=== PATIENT | male | born 1985 | race Caucasian/White ===

== ENCOUNTER 2019-12-28 14:26 | Emergency (ER) | payer OTHER ==
[~2019-12-28] VITALS: Ht 188 cm; Wt 83.9 kg
[~2019-12-28 14:26] MED LIST: ALBU90OI INH; AMOX500 PO; AZIT500 PO; Desyrel50 MG PO; NAPR550 PO; OXYACE5T PO; RXNAPNA550 PO; Zoloft25 MG PO; Zoloft50 MG PO
[2019-12-28] MEDS ORDERED: ACYC400 PO (16:46)
== END 2019-12-28 16:54 | disposition home or self-care (01) ==
LOC: ER 14:26
DX: S02.40CA Maxillary fracture, right side, initial encounter for closed fracture (principal); A60.01 Herpesviral infection of penis; F32.9 Major depressive disorder, single episode, unspecified; F17.210 Nicotine dependence, cigarettes, uncomplicated; Z79.899 Other long term (current) drug therapy; V27.4XXA Motorcycle driver injured in collision with fixed or stationary object in traffic accident, initial encounter
CPT/HCPCS: 70450; 70486; 73130; 99284-25

== ENCOUNTER 2020-11-05 18:13 | Emergency (ER) | payer OTHER ==
[~2020-11-05] VITALS: Ht 188 cm; Wt 81.7 kg
[~2020-11-05 18:13] MED LIST changes: +ACYC400 PO
== END 2020-11-05 21:16 | disposition home or self-care (01) ==
LOC: ER 18:13
DX: M65.9 Synovitis and tenosynovitis, unspecified (principal); F17.210 Nicotine dependence, cigarettes, uncomplicated; X50.1XXA Overexertion from prolonged static or awkward postures, initial encounter; Y93.89 Activity, other specified
CPT/HCPCS: 29125; 73100; 99283-25

== ENCOUNTER 2021-04-09 16:21 | Observation (INO) | payer OTHER ==
[~2021-04-09] VITALS: Ht 188 cm; Wt 68.0 kg
[2021-04-09 17:08] LABS: BASOPHILS ABSOLUTE AUTO 0.02 K/mm3 (0.00-0.23); BASOPHILS PERCENT AUTO 0 % (0-2); EOSINOPHILS ABSOLUTE AUTO 0.22 K/mm3 (0.00-0.68); EOSINOPHILS PERCENT AUTO 2 % (0-6); Hematocrit 42.2 % (37.0-53.0); Hemoglobin 13.9 g/dL (13.5-17.5); IMMATURE GRAN ABSOLUTE AUTO 0.02 K/mm3 (0.00-0.10); IMMATURE GRAN PERCENT AUTO 0 % (0-1); LYMPHOCYTES ABSOLUTE AUTO 2.53 K/mm3 (0.84-5.20); LYMPHOCYTES PERCENT AUTO 26 % (21-46); MONOCYTES ABSOLUTE AUTO 0.52 K/mm3 (0.16-1.47); MONOCYTES PERCENT AUTO 5 % (4-13); Mean Corpuscular HGB Conc 32.9 g/dL (31.5-36.5); Mean Corpuscular Volume 91 fL (80-100); Mean Platelet Volume 10.4 fL (9.1-12.4); NEUTROPHILS ABSOLUTE AUTO 6.56 K/mm3 (1.96-9.15); NEUTROPHILS PERCENT AUTO 67 % (41-73); Platelet Count 266 K/mm3 (150-400); RDW Coefficient Variation 12.7 % (11.7-14.2); RDW Standard Deviation 42.5 fL (35.1-46.3); Red Blood Cell Count 4.63 M/mm3 (4.30-5.90); White Blood Cell Count 9.87 K/mm3 (4.00-11.30)
[2021-04-09 17:16] LABS: Source, Urine Clean Catch
[2021-04-09 17:34] LABS: Appearance, Urine Clear (Clear); Bilirubin, Urine Neg (Neg); Blood, Urine 1+ (Neg); Color, Urine Yellow (P-Yellow); Glucose Qualitative, Urine Neg (Neg); Ketones, Urine Neg (Neg); Leukocyte Esterase, Urine Neg (Neg); Nitrite, Urine Neg (Neg); Protein, Urine Neg (Neg); Urobilinogen, Urine NORM (Normal)
[2021-04-09 17:35] LABS: U Cannabinoids Screen DETECTED
[2021-04-09 17:36] LABS: U Amphetamine Screen Not Detected; U Barbituate Screen Not Detected; U Benzodiazapine Screen Not Detected; U Buprenorphine Screen Not Detected; U Cocaine Screen Not Detected; U Methadone Screen Not Detected; U Methamphetamine Screen Not Detected; U Opiates Screen Not Detected; U Oxycodone Screen Not Detected; U Phencyclidine Screen Not Detected; U Propoxyphene Screen Not Detected
[2021-04-09 17:38] LABS: Alanine Aminotransfer (ALT/SGP 23 U/L (12-78); Albumin, Blood 3.6 g/dL (3.4-5.0); Albumin/Globulin Ratio 0.9 (0.8-1.8); Alk Phos 58 U/L (50-136); Anion Gap 9 mmol/L (6-16); Aspartate Aminotrans (AST/SGOT 19 U/L (12-37); Bilirubin, Total 0.7 mg/dL (0.1-1.0); Blood Urea Nitrogen 14 mg/dL (8-24); Bun/Creatinine Ratio 16.3 (12.0-20.0); CO2, Blood 24 mmol/L (21-32); Calcium, Blood 8.5 mg/dL (8.5-10.1); Chloride, Blood 109 mmol/L (98-108); Creatinine, Blood 0.86 mg/dL (0.60-1.20); Ethanol (Alcohol), Blood, Med 35 mg/dL; Globulin, Blood 3.8 g/dL (2.2-4.0); Glomerular Filtration Rate >60 (60-); Glucose, Blood 94 mg/dL (70-99); Potassium, Blood 3.9 mmol/L (3.5-5.5); Salicylate 2.2 mg/dL (2.8-20.0); Sodium, Blood 142 mmol/L (136-145); Total Protein, Blood 7.4 g/dL (6.4-8.2)
[2021-04-09 17:47] LABS: White Blood Cells, Urine Rare /hpf (0-5)
[2021-04-09 17:48] LABS: Bacteria Rare /hpf; Red Blood Cells, Urine 0-2 /hpf (0-2); Squamous Epithelial Cells Rare /hpf (Few)
[2021-04-09 19:10] LABS: SARS-Cov-2 (COVID-19) PCR, MMC NEGATIVE (NEGATIVE)
== END 2021-04-10 14:03 | disposition home or self-care (01) ==
LOC: ER 16:21 → EOR 16:22
PROVIDERS: Physician Assistant; ADMIT Student in an Organized Health Care Education/Training Program
DX: F33.9 Major depressive disorder, recurrent, unspecified (principal); F19.10 Other psychoactive substance abuse, uncomplicated; F17.210 Nicotine dependence, cigarettes, uncomplicated; Z20.822 Contact with and (suspected) exposure to COVID-19; Z59.0 Homelessness
CPT/HCPCS: 80053; 81001; 85025; 99285; A9270; G0378; G0480; Q3014; U0004

== ENCOUNTER 2021-12-10 16:16 | Emergency (ER) | payer OTHER ==
[~2021-12-10] VITALS: Ht 188 cm; Wt 81.7 kg
[~2021-12-10 16:16] MED LIST changes: +Keflex500 MG PO
[2021-12-10 17:17] LABS: BASOPHILS ABSOLUTE AUTO 0.02 K/mm3 (0.00-0.23); BASOPHILS PERCENT AUTO 0 % (0-2); EOSINOPHILS ABSOLUTE AUTO 0.05 K/mm3 (0.00-0.68); EOSINOPHILS PERCENT AUTO 1 % (0-6); Hematocrit 41.7 % (37.0-53.0); Hemoglobin 14.2 g/dL (13.5-17.5); IMMATURE GRAN ABSOLUTE AUTO 0.02 K/mm3 (0.00-0.10); IMMATURE GRAN PERCENT AUTO 0 % (0-1); LYMPHOCYTES ABSOLUTE AUTO 1.85 K/mm3 (0.84-5.20); LYMPHOCYTES PERCENT AUTO 24 % (21-46); MONOCYTES ABSOLUTE AUTO 1.11 K/mm3 (0.16-1.47); MONOCYTES PERCENT AUTO 15 % (4-13); Mean Corpuscular HGB 31.4 pg (26.0-34.0); Mean Corpuscular HGB Conc 34.1 g/dL (31.5-36.5); Mean Corpuscular Volume 92 fL (80-100); Mean Platelet Volume 10.2 fL (9.1-12.4); NEUTROPHILS ABSOLUTE AUTO 4.53 K/mm3 (1.96-9.15); NEUTROPHILS PERCENT AUTO 60 % (41-73); Platelet Count 234 K/mm3 (150-400); RDW Coefficient Variation 13.3 % (11.7-14.2); RDW Standard Deviation 45.9 fL (35.1-46.3); Red Blood Cell Count 4.52 M/mm3 (4.30-5.90); White Blood Cell Count 7.58 K/mm3 (4.00-11.30)
[2021-12-10 17:36] LABS: Alanine Aminotransfer (ALT/SGP 25 U/L (12-78); Albumin, Blood 3.5 g/dL (3.4-5.0); Albumin/Globulin Ratio 0.9 (0.8-1.8); Alk Phos 69 U/L (50-136); Anion Gap 4 mmol/L (6-16); Aspartate Aminotrans (AST/SGOT 21 U/L (12-37); Bilirubin, Total 0.4 mg/dL (0.1-1.0); Blood Urea Nitrogen 15 mg/dL (8-24); Bun/Creatinine Ratio 16.9 (12.0-20.0); CO2, Blood 28 mmol/L (21-32); Calcium, Blood 8.5 mg/dL (8.5-10.1); Chloride, Blood 107 mmol/L (98-108); Creatinine, Blood 0.89 mg/dL (0.60-1.20); Glomerular Filtration Rate >60 (60-); Glucose, Blood 84 mg/dL (70-99); Potassium, Blood 3.9 mmol/L (3.5-5.5); Sodium, Blood 139 mmol/L (136-145); Total Protein, Blood 7.5 g/dL (6.4-8.2)
== END 2021-12-10 19:41 | disposition home or self-care (01) ==
LOC: ER 16:16
PROVIDERS: Physician Assistant
DX: R59.0 Localized enlarged lymph nodes (principal); F32.A Depression, unspecified; F17.210 Nicotine dependence, cigarettes, uncomplicated
CPT/HCPCS: 36415; 74177; 80053; 85025; 99284-25; Q9967

== ENCOUNTER 2022-07-29 23:11 | Emergency (ER) | payer OTHER ==
[~2022-07-29] VITALS: Ht 188 cm; Wt 70.3 kg
== END 2022-07-30 01:44 | disposition home or self-care (01) ==
LOC: ER 23:11
DX: S01.81XA Laceration without foreign body of other part of head, initial encounter (principal); F17.210 Nicotine dependence, cigarettes, uncomplicated; W19.XXXA Unspecified fall, initial encounter
CPT/HCPCS: 90714

== ENCOUNTER 2022-08-20 16:21 | Emergency (ER) | payer OTHER ==
[~2022-08-20] VITALS: Ht 188 cm; Wt 79.4 kg
== END 2022-08-20 16:52 | disposition home or self-care (01) ==
LOC: ER 16:21
DX: Z48.02 Encounter for removal of sutures (principal); F17.210 Nicotine dependence, cigarettes, uncomplicated; Z79.899 Other long term (current) drug therapy
CPT/HCPCS: 99281

== ENCOUNTER 2023-05-21 02:53 | Emergency (ER) | payer OTHER ==
[~2023-05-21] VITALS: Ht 188 cm; Wt 88.5 kg
[2023-05-21 03:22] LABS: BASOPHILS ABSOLUTE AUTO 0.04 K/mm3 (0.00-0.23); BASOPHILS PERCENT AUTO 0 % (0-2); EOSINOPHILS ABSOLUTE AUTO 0.21 K/mm3 (0.00-0.68); EOSINOPHILS PERCENT AUTO 2 % (0-6); Hematocrit 39.5 % (37.0-53.0); Hemoglobin 13.3 g/dL (13.5-17.5); IMMATURE GRAN ABSOLUTE AUTO 0.04 K/mm3 (0.00-0.10); IMMATURE GRAN PERCENT AUTO 0 % (0-1); LYMPHOCYTES ABSOLUTE AUTO 2.22 K/mm3 (0.84-5.20); LYMPHOCYTES PERCENT AUTO 17 % (21-46); MONOCYTES PERCENT AUTO 7 % (4-13); Mean Corpuscular HGB 30.2 pg (26.0-34.0); Mean Corpuscular HGB Conc 33.7 g/dL (31.5-36.5); Mean Corpuscular Volume 90 fL (80-100); Mean Platelet Volume 10.3 fL (9.1-12.4); NEUTROPHILS ABSOLUTE AUTO 10.01 K/mm3 (1.96-9.15); NEUTROPHILS PERCENT AUTO 75 % (41-73); Platelet Count 236 K/mm3 (150-400); RDW Coefficient Variation 12.4 % (11.7-14.2); Red Blood Cell Count 4.41 M/mm3 (4.30-5.90); White Blood Cell Count 13.42 K/mm3 (4.00-11.30)
[2023-05-21 03:34] LABS: Albumin, Blood 3.2 g/dL (3.4-5.0); Albumin/Globulin Ratio 0.9 (0.8-1.8); Bilirubin, Total 0.7 mg/dL (0.1-1.0); Bun/Creatinine Ratio 11.7 (12.0-20.0); Calcium, Blood 8.7 mg/dL (8.5-10.1); Creatinine, Blood 0.94 mg/dL (0.60-1.20); Globulin, Blood 3.5 g/dL (2.2-4.0); Potassium, Blood 4.4 mmol/L (3.5-5.5); Total Protein, Blood 6.7 g/dL (6.4-8.2)
[2023-05-21 04:15] LABS: Influenza A, PCR NEGATIVE (NEGATIVE); Influenza B, PCR NEGATIVE (NEGATIVE); Resp Syncytial Virus, PCR NEGATIVE (NEGATIVE); SARS-Cov-2 (COVID-19) PCR, MMC NEGATIVE (NEGATIVE)
[2023-05-21] MEDS ORDERED: Amoxicillin875 MG PO (04:36)
[2023-05-21 04:40] VITALS: BP 119/86
== END 2023-05-21 04:41 | disposition home or self-care (01) ==
LOC: ER 02:53
PROVIDERS: Emergency Medicine
DX: J18.9 Pneumonia, unspecified organism (principal); F17.210 Nicotine dependence, cigarettes, uncomplicated; Z20.822 Contact with and (suspected) exposure to COVID-19
CPT/HCPCS: 0241U; 71045; 80053; 84484; 85025; 93005; 93010; 99284-25; A9270

== ENCOUNTER 2023-06-20 10:02 | Emergency (ER) | payer OTHER ==
[~2023-06-20] VITALS: Ht 188 cm; Wt 77.1 kg
[~2023-06-20 10:02] MED LIST changes: +Amoxicillin875 MG PO
[2023-06-20 10:25] VITALS: BP 168/71
[2023-06-20] MEDS ORDERED: ALBU90OI INH (11:33)
[2023-06-20] MEDS ORDERED: METPRE4DP PO (11:33)
== END 2023-06-20 11:39 | disposition home or self-care (01) ==
LOC: ER 10:02
DX: J40 Bronchitis, not specified as acute or chronic (principal); F17.210 Nicotine dependence, cigarettes, uncomplicated; Z11.52 Encounter for screening for COVID-19; Z79.52 Long term (current) use of systemic steroids
CPT/HCPCS: 71046; 99285-25

== ENCOUNTER 2023-07-05 14:00 | Emergency (ER) | payer OTHER ==
[~2023-07-05] VITALS: Ht 188 cm; Wt 74.8 kg
[~2023-07-05 14:00] MED LIST changes: +METPRE4DP PO
[2023-07-05 14:44] LABS: BASOPHILS ABSOLUTE AUTO 0.02 K/mm3 (0.00-0.23); BASOPHILS PERCENT AUTO 0 % (0-2); EOSINOPHILS ABSOLUTE AUTO 0.03 K/mm3 (0.00-0.68); EOSINOPHILS PERCENT AUTO 0 % (0-6); Hematocrit 41.2 % (37.0-53.0); Hemoglobin 13.7 g/dL (13.5-17.5); IMMATURE GRAN ABSOLUTE AUTO 0.04 K/mm3 (0.00-0.10); IMMATURE GRAN PERCENT AUTO 0 % (0-1); LYMPHOCYTES ABSOLUTE AUTO 1.66 K/mm3 (0.84-5.20); LYMPHOCYTES PERCENT AUTO 13 % (21-46); MONOCYTES ABSOLUTE AUTO 0.89 K/mm3 (0.16-1.47); MONOCYTES PERCENT AUTO 7 % (4-13); Mean Corpuscular HGB 29.9 pg (26.0-34.0); Mean Corpuscular HGB Conc 33.3 g/dL (31.5-36.5); Mean Corpuscular Volume 90 fL (80-100); Mean Platelet Volume 10.4 fL (9.1-12.4); NEUTROPHILS ABSOLUTE AUTO 10.43 K/mm3 (1.96-9.15); NEUTROPHILS PERCENT AUTO 80 % (41-73); Platelet Count 262 K/mm3 (150-400); RDW Coefficient Variation 13.9 % (11.7-14.2); RDW Standard Deviation 45.4 fL (35.1-46.3); Red Blood Cell Count 4.58 M/mm3 (4.30-5.90); White Blood Cell Count 13.07 K/mm3 (4.00-11.30)
[2023-07-05 15:11] LABS: Albumin, Blood 3.2 g/dL (3.4-5.0); Bilirubin, Total 1.4 mg/dL (0.1-1.0); Bun/Creatinine Ratio 17.9 (12.0-20.0); Calcium, Blood 8.4 mg/dL (8.5-10.1); Creatinine, Blood 0.95 mg/dL (0.60-1.20); Globulin, Blood 3.2 g/dL (2.2-4.0); Potassium, Blood 4.3 mmol/L (3.5-5.5); Total Protein, Blood 6.4 g/dL (6.4-8.2)
[2023-07-05 19:41] LABS: Influenza A, PCR NEGATIVE (NEGATIVE); Influenza B, PCR NEGATIVE (NEGATIVE); Resp Syncytial Virus, PCR NEGATIVE (NEGATIVE); SARS-Cov-2 (COVID-19) PCR, MMC NEGATIVE (NEGATIVE)
[2023-07-05] MEDS ORDERED: POTA10T PO (20:31)
[2023-07-05] MEDS ORDERED: FURO20 PO (20:31)
[2023-07-05 20:35] VITALS: BP 149/102
== END 2023-07-05 20:39 | disposition home or self-care (01) ==
LOC: ER 14:00
PROVIDERS: Physician Assistant; Student in an Organized Health Care Education/Training Program
DX: I50.9 Heart failure, unspecified (principal); R05.9 Cough, unspecified; F17.210 Nicotine dependence, cigarettes, uncomplicated; Z79.899 Other long term (current) drug therapy; Z20.822 Contact with and (suspected) exposure to COVID-19
CPT/HCPCS: 0241U; 71046; 80053; 83880; 84484; 85025; 93005; 93010; 96374; 99285-25; A9270; J1940

== ENCOUNTER 2023-07-29 04:42 | Inpatient (IN) | payer OTHER ==
[2023-07-29] VITALS (41 sets, daily range): BP systolic 83–173; BP diastolic 35–81
[~2023-07-29] VITALS: Ht 188 cm; Wt 72.6 kg
[~2023-07-29 04:42] MED LIST changes: +FURO20 PO; +POTA10T PO
[2023-07-29 05:06] LABS: BASOPHILS ABSOLUTE AUTO 0.06 K/mm3 (0.00-0.23); BASOPHILS PERCENT AUTO 0 % (0-2); EOSINOPHILS ABSOLUTE AUTO 0.04 K/mm3 (0.00-0.68); EOSINOPHILS PERCENT AUTO 0 % (0-6); Hematocrit 39.3 % (37.0-53.0); Hemoglobin 13.4 g/dL (13.5-17.5); IMMATURE GRAN ABSOLUTE AUTO 0.14 K/mm3 (0.00-0.10); IMMATURE GRAN PERCENT AUTO 1 % (0-1); LYMPHOCYTES ABSOLUTE AUTO 0.99 K/mm3 (0.84-5.20); LYMPHOCYTES PERCENT AUTO 4 % (21-46); MONOCYTES ABSOLUTE AUTO 1.49 K/mm3 (0.16-1.47); MONOCYTES PERCENT AUTO 6 % (4-13); Mean Corpuscular HGB 29.5 pg (26.0-34.0); Mean Corpuscular HGB Conc 34.1 g/dL (31.5-36.5); Mean Corpuscular Volume 87 fL (80-100); Mean Platelet Volume 10.6 fL (9.1-12.4); NEUTROPHILS ABSOLUTE AUTO 20.39 K/mm3 (1.96-9.15); NEUTROPHILS PERCENT AUTO 88 % (41-73); Platelet Count 222 K/mm3 (150-400); RDW Coefficient Variation 13.4 % (11.7-14.2); RDW Standard Deviation 41.8 fL (35.1-46.3); Red Blood Cell Count 4.54 M/mm3 (4.30-5.90); White Blood Cell Count 23.11 K/mm3 (4.00-11.30)
[2023-07-29 05:26] LABS: Bilirubin, Total 2.3 mg/dL (0.1-1.0); Bun/Creatinine Ratio 13.5 (12.0-20.0); Calcium, Blood 8.3 mg/dL (8.5-10.1); Creatinine, Blood 1.11 mg/dL (0.60-1.20); Globulin, Blood 3.1 g/dL (2.2-4.0); Potassium, Blood 4.2 mmol/L (3.5-5.5); Total Protein, Blood 6.1 g/dL (6.4-8.2)
[2023-07-29 08:35] LABS: Influenza A, PCR NEGATIVE (NEGATIVE); Influenza B, PCR NEGATIVE (NEGATIVE); Resp Syncytial Virus, PCR NEGATIVE (NEGATIVE); SARS-Cov-2 (COVID-19) PCR, MMC NEGATIVE (NEGATIVE)
--- NOTE | 2023-07-29 15:20 | NUR ---
ARRIVAL TO ICU PT ARRIVED TO ICU AT 14:35. HE IS ALERT AND ORIENTED. HE DENIES SOB BUT APPEARS TO HAVE INCREASED WORK OF BREATHING. HE IS ON RA WITH SPO2 >95%. SINUS TACH ON MONITOR WITH RATE IN 100S-110S. SBP 160S-170S. PT DESCRIBES PERSISTENT CHEST PAIN THAT IS CONSTANT PRESSURE THAT RADIATES TO THE R SHOULDER/ARM. DR HORTA AT BEDSIDE DURING ARRIVAL. NITROPRUSSIDE GTT STARTED AT 0.25MCG/KG/MIN. URINE SAMPLE SENT TO LAB. BED IN LOW POSITION, CALL LIGHT WITHIN REACH.
--- NOTE | 2023-07-29 16:15 | NUR ---
NITROPRUSSIDE VERIFIED WITH DR HORTA TO INFUSE NITROPRUSSIDE PERIPHERALLY.
[2023-07-29 16:16] LABS: U Amphetamine Screen Not Detected; U Barbituate Screen Not Detected; U Benzodiazapine Screen Not Detected; U Buprenorphine Screen Not Detected; U Cannabinoids Screen Not Detected; U Cocaine Screen Not Detected; U Methadone Screen Not Detected; U Methamphetamine Screen Not Detected; U Opiates Screen Not Detected; U Oxycodone Screen Not Detected; U Phencyclidine Screen Not Detected
--- NOTE | 2023-07-29 18:10 | NUR ---
SHIFT SUMMARY PT RECEIVING NITROPRUSSIDE 1MCG/KG/MIN. HE REMAINS ALERT AND ORIENTED, PARTICIPATES IN CONVERSATION AND CARE. HE IS ON RA WITH SPO2 >90%. HE DENIES SOB, RR 18-22. SINUS TACH ON MONITOR WITH RATE IN 100S. HE CONTINUES TO HAVE MILD CHEST PAIN THAT IS CONSTANT AND RADIATES TO HIS R SHOULDER/ARM. NPO SINCE ARRIVAL IN ANTICIPATION FOR BONNIE THIS EVENING. HE HAS VOIDED TWICE IN THE URINAL INDEPENDENTLY. BED IN LOW POSITION AND CALL LIGHT WITHIN REACH. AWAITING DR HORTA AND ANESTHESIA FOR BONNIE AT THIS TIME.
--- NOTE | 2023-07-29 21:29 | NUR ---
ASSUMED CARE ASSUMED CARE AT 190. PT A/O X 4. CALM AND COOPERATIVE WITH CARE. VSS. ON RA. NITROPRUSSIDE GTT INFUSING. SEE FLOWSHEET FOR TITRATIONS. DR HORTA, ANESTHESIA, RT, AND TISSUE COORDINATOR AT BEDSIDE FOR BONNIE. PT TOLERATED WELL. PROCEDURE ENDED AT 2021. SEE ANESTHESIA RECORD. PT AWAKE AND FOLLOWING COMMANDS AT 2104. PT A LITTLE CONFUSED AND OOB WITHOUT CALLING. BED ALARM IN PLACE. ONE ASSIST WITH BRP. CALL LIGHT IN REACH.
[2023-07-30] VITALS (53 sets, daily range): BP systolic 99–147; BP diastolic 41–85
[2023-07-30 03:25] LABS: BASOPHILS ABSOLUTE AUTO 0.03 K/mm3 (0.00-0.23); BASOPHILS PERCENT AUTO 0 % (0-2); EOSINOPHILS ABSOLUTE AUTO 0.11 K/mm3 (0.00-0.68); EOSINOPHILS PERCENT AUTO 1 % (0-6); Hematocrit 38.7 % (37.0-53.0); Hemoglobin 12.9 g/dL (13.5-17.5); IMMATURE GRAN ABSOLUTE AUTO 0.07 K/mm3 (0.00-0.10); IMMATURE GRAN PERCENT AUTO 0 % (0-1); LYMPHOCYTES ABSOLUTE AUTO 1.58 K/mm3 (0.84-5.20); LYMPHOCYTES PERCENT AUTO 9 % (21-46); MONOCYTES ABSOLUTE AUTO 0.96 K/mm3 (0.16-1.47); MONOCYTES PERCENT AUTO 6 % (4-13); Mean Corpuscular HGB 29.5 pg (26.0-34.0); Mean Corpuscular HGB Conc 33.3 g/dL (31.5-36.5); Mean Corpuscular Volume 88 fL (80-100); Mean Platelet Volume 10.7 fL (9.1-12.4); NEUTROPHILS ABSOLUTE AUTO 14.06 K/mm3 (1.96-9.15); NEUTROPHILS PERCENT AUTO 84 % (41-73); Platelet Count 180 K/mm3 (150-400); RDW Coefficient Variation 13.7 % (11.7-14.2); RDW Standard Deviation 44.8 fL (35.1-46.3); Red Blood Cell Count 4.38 M/mm3 (4.30-5.90); White Blood Cell Count 16.81 K/mm3 (4.00-11.30)
[2023-07-30 03:44] LABS: Bun/Creatinine Ratio 12.8 (12.0-20.0); Creatinine, Blood 1.09 mg/dL (0.60-1.20)
--- NOTE | 2023-07-30 05:28 | NUR ---
SHIFT SUMMARY NO ACUTE EVENTS T/O NIGHT. PT HAD ONE EPISODE OF CHEST PAIN AND SOB AFTER COUGHING EPISODE. PT REQUESTING A BREATHING TREATMENT AND TYLENOL. PT STATED IT HURTS IN THE MIDDLE OF HIS CHEST WHEN HE BREATHES. AFTER BREATHING TREATMENT AND TYLENOL, PT DENIES CHEST PAIN AFTER GIVEN BOTH. VSS. NITROPRUSSIDE GTT RESTARTED AT APPROX 0230 TO KEEP SBP BELOW 120. SEE FLOWSHEET. WILL REPORT OFF TO ONCOMING RN. CALL LIGHT IN REACH.
--- NOTE | 2023-07-30 10:11 | NUR ---
ASSUMED CARE CARE WAS ASSUMED OF PT AT 0700, REPORT GIVEN BY ANDREE TAMAYO. PT A/O X4, ABLE TO REPOSITION INDEPENDENTLY IN BED AND PARTICIPATE IN CONVERSATION. PT ON RA, O2 SATS > 95%. CONTINUOUS CARDIAC MONITORING REFLECTS NSR AT THIS TIME. NITROPRUSSIDE GTT INFUSING FOR SBP GOAL < 120. HR 80s-90s. PT AFEBRILE. PT USING URINAL WITH INDEPENDENCE. PLAN FOR PT TO TRANSFER TO [facility] TODAY.
--- NOTE | 2023-07-30 13:05 | NUR ---
SHIFT SUMMARY/TRANSFER PT HAD NO SIGNIFICANT ACUTE CHANGES THIS MORNING. PT REMAINED A/O X4, ABLE TO ANSWER QUESTIONS APPROPRIATELY AND PARTICIPATE IN CONVERSATION. PT REMAINED ON RA, O2 SATS > 95%. CARDIAC MONITORING REFLECTED NSR AT TIME OF TRANSFER, NITROPRUSSIDE GTT INFUSING AT 0.75 MCG/KG/HR AT TIME OF TRANSFER FOR GOAL OF SBP < 120. GTT INFUSING THROUGH L PIV. R PIV SL. HR 90s. REPORT GIVEN TO PARAMEDICS WITH [facility]. PT LEFT VIA [facility] AT 1255. REPORT GIVEN TO PEREZ TAMAYO AT [facility] AT 1305. ALL BELONGINGS SENT WITH PT, PT TO STOP AT SECURITY TO ASSISTANT PROGRAM DIRECTOR HEARING THERAPY TEACHER BEFORE DEPARTURE.
== END 2023-07-30 12:55 | disposition short-term general hospital (02) | DRG 871 ==
LOC: ER 04:42 → MEDS 07:55 → ICUE 14:42
PROVIDERS: Emergency Medicine; ADMIT Family Medicine
DX: A41.9 Sepsis, unspecified organism (principal); I33.0 Acute and subacute infective endocarditis; J18.9 Pneumonia, unspecified organism; I35.1 Nonrheumatic aortic (valve) insufficiency; F15.90 Other stimulant use, unspecified, uncomplicated; F17.210 Nicotine dependence, cigarettes, uncomplicated; D64.9 Anemia, unspecified; R65.20 Severe sepsis without septic shock; I50.9 Heart failure, unspecified; E86.0 Dehydration; Z59.01 Sheltered homelessness; Z11.52 Encounter for screening for COVID-19
CPT/HCPCS: 0241U; 36415; 71045; 71260; 80048; 80053; 83605; 84484; 85025; 85379; 87040; 87070; 87205; 93005; 93010; 93306; 93312; 93325; 94640; 94664; 94760; 96365-59; 96366-59; 96367-59; 99285-25; A9270; J0696; J2704; J3370; J7030; J7050; J7060; J7120; Q9967

== ENCOUNTER 2024-05-22 06:37 | Emergency (ER) | payer OTHER ==
[~2024-05-22] VITALS: Ht 188 cm; Wt 74.8 kg
[~2024-05-22 06:37] MED LIST changes: +Aspir 8181 MG PO; +COLCHICINE0.6 MG PO; +INDO50 PO; +LOSA50 PO; +Nicoderm Cq1 EAC1 TOP
[2024-05-22 07:17] VITALS: BP 150/123
[2024-05-22] MEDS ORDERED: Ketorolac Tromethamine 30mg Vial IM ONE (07:30)
[2024-05-22] MEDS ORDERED: Methyl Salicylate/Menth/Camph 57 GM TUBE TOP ONE (07:30)
[2024-05-22] MEDS ORDERED: Methocarbamol 500 MG Tab PO ONE (07:30)
[2024-05-22] MEDS ORDERED: Acetaminophen 500 MG Tab PO ONE (07:30)
[2024-05-22] MEDS ORDERED: Robaxin750 MG PO (08:41)
== END 2024-05-22 08:53 | disposition home or self-care (01) ==
LOC: ER 06:37
DX: S39.012A Strain of muscle, fascia and tendon of lower back, initial encounter (principal); F17.210 Nicotine dependence, cigarettes, uncomplicated; X58.XXXA Exposure to other specified factors, initial encounter; Z79.82 Long term (current) use of aspirin; Z79.899 Other long term (current) drug therapy
CPT/HCPCS: 96372; 99283-25; A9270; J1885

== ENCOUNTER 2024-07-15 16:18 | Emergency (ER) | payer OTHER ==
[~2024-07-15] VITALS: Ht 188 cm; Wt 72.6 kg
[~2024-07-15 16:18] MED LIST changes: +Robaxin750 MG PO
[2024-07-15 16:24] VITALS: BP 194/135
== END 2024-07-15 16:45 | disposition home or self-care (01) ==
LOC: ER 16:18
DX: S86.112A Strain of other muscle(s) and tendon(s) of posterior muscle group at lower leg level, left leg, initial encounter (principal); F17.210 Nicotine dependence, cigarettes, uncomplicated; Z79.82 Long term (current) use of aspirin; Z79.899 Other long term (current) drug therapy; X58.XXXA Exposure to other specified factors, initial encounter; Y93.67 Activity, basketball
CPT/HCPCS: 99282

== ENCOUNTER 2024-08-18 20:18 | Emergency (ER) | payer OTHER ==
[~2024-08-18] VITALS: Ht 188 cm; Wt 77.1 kg
[2024-08-18 21:25] VITALS: BP 200/132
[2024-08-18] MEDS ORDERED: Prochlorperazine Edisylate 10 mg Vial IV ONE (21:35)
[2024-08-18] MEDS ORDERED: DiphenhydrAMINE HCl 50 MG/ML 1ML Vial IV ONE (21:35)
[2024-08-18] MEDS ORDERED: Acetaminophen 500 MG Tab PO ONE (21:35)
[2024-08-18] MEDS ORDERED: ACET500 PO (22:48)
== END 2024-08-18 23:35 | disposition home or self-care (01) ==
LOC: ER 20:18
DX: I16.0 Hypertensive urgency (principal); I10 Essential (primary) hypertension; F17.210 Nicotine dependence, cigarettes, uncomplicated; Z79.82 Long term (current) use of aspirin; Z79.899 Other long term (current) drug therapy
CPT/HCPCS: 70450; 96374; 96375; 99284-25; A9270; J0780; J1200

== ENCOUNTER 2024-09-02 22:41 | Emergency (ER) | payer OTHER ==
[~2024-09-02] VITALS: Ht 188 cm; Wt 74.8 kg
[~2024-09-02 22:41] MED LIST changes: +ACET500 PO
[2024-09-02] MEDS ORDERED: Ketorolac Tromethamine 15mg Vial IV ONE (22:55)
[2024-09-02] MEDS ORDERED: Prochlorperazine Edisylate 10 mg Vial IV ONE (22:55)
[2024-09-02] MEDS ORDERED: Lactated Ringer's 1,000 ML IV ONE (22:55)
[2024-09-02 23:34] LABS: BASOPHILS ABSOLUTE AUTO 0.04 K/mm3 (0.00-0.23); BASOPHILS PERCENT AUTO 0 % (0-2); EOSINOPHILS ABSOLUTE AUTO 0.09 K/mm3 (0.00-0.68); EOSINOPHILS PERCENT AUTO 1 % (0-6); Hematocrit 46.3 % (37.0-53.0); Hemoglobin 15.7 g/dL (13.5-17.5); IMMATURE GRAN ABSOLUTE AUTO 0.04 K/mm3 (0.00-0.10); IMMATURE GRAN PERCENT AUTO 0 % (0-1); LYMPHOCYTES ABSOLUTE AUTO 1.55 K/mm3 (0.84-5.20); LYMPHOCYTES PERCENT AUTO 14 % (21-46); MONOCYTES ABSOLUTE AUTO 0.49 K/mm3 (0.16-1.47); MONOCYTES PERCENT AUTO 4 % (4-13); Mean Corpuscular HGB 29.2 pg (26.0-34.0); Mean Corpuscular HGB Conc 33.9 g/dL (31.5-36.5); Mean Corpuscular Volume 86 fL (80-100); Mean Platelet Volume 10.2 fL (9.1-12.4); NEUTROPHILS ABSOLUTE AUTO 9.09 K/mm3 (1.96-9.15); NEUTROPHILS PERCENT AUTO 80 % (41-73); Platelet Count 285 K/mm3 (150-400); RDW Coefficient Variation 12.3 % (11.7-14.2); RDW Standard Deviation 38.9 fL (35.1-46.3); Red Blood Cell Count 5.38 M/mm3 (4.30-5.90)
[2024-09-02 23:50] LABS: Albumin, Blood 3.6 g/dL (3.4-5.0); Albumin/Globulin Ratio 0.8 (0.8-1.8); Bilirubin, Total 0.4 mg/dL (0.1-1.0); Bun/Creatinine Ratio 18.6 (12.0-20.0); Creatinine, Blood 0.86 mg/dL (0.60-1.20); Globulin, Blood 4.4 g/dL (2.2-4.0); Magnesium, Blood 2.2 mg/dL (1.6-2.4); Potassium, Blood 3.6 mmol/L (3.5-5.5)
[2024-09-03] MEDS ORDERED: RX Prepack 2 Tabs Ondansetron ODT 4MG UD ONE ×2 (00:15→00:25)
[2024-09-03] MEDS ORDERED: HYDCHL25 PO (00:23)
[2024-09-03] MEDS ORDERED: ONDA4ODT MM (00:23)
[2024-09-03 00:30] VITALS: BP 170/117
== END 2024-09-03 00:48 | disposition home or self-care (01) ==
LOC: ER 22:41
PROVIDERS: Student in an Organized Health Care Education/Training Program
DX: I10 Essential (primary) hypertension (principal); R11.2 Nausea with vomiting, unspecified; F17.210 Nicotine dependence, cigarettes, uncomplicated; Z79.82 Long term (current) use of aspirin
CPT/HCPCS: 80053; 83735; 85025; 96374; 96375; 99284-25; A9270; J0780; J1885; J7120

== ENCOUNTER 2024-11-14 17:10 | Emergency (ER) | payer OTHER ==
[~2024-11-14] VITALS: Ht 188 cm; Wt 72.6 kg
[~2024-11-14 17:10] MED LIST changes: +HYDCHL25 PO; +ONDA4ODT MM
[2024-11-14 17:33] VITALS: BP 203/147
[2024-11-14] MEDS ORDERED: HYDROcodone 5-APAP 325 TAB PO ONE (17:40)
[2024-11-14] MEDS ORDERED: METPRE4DP PO (19:48)
[2024-11-14] MEDS ORDERED: IBUP800 PO (19:48)
[2024-11-14] MEDS ORDERED: HYDROCODONE-AC1 EA10 PO (19:48)
== END 2024-11-14 19:56 | disposition home or self-care (01) ==
LOC: ER 17:10
DX: M51.16 Intervertebral disc disorders with radiculopathy, lumbar region (principal); S80.211A Abrasion, right knee, initial encounter; F17.210 Nicotine dependence, cigarettes, uncomplicated; Z79.82 Long term (current) use of aspirin; Z79.899 Other long term (current) drug therapy; V19.9XXA Pedal cyclist (driver) (passenger) injured in unspecified traffic accident, initial encounter
CPT/HCPCS: 72100; 73552; 99283-25

== ENCOUNTER 2024-12-09 01:50 | Inpatient (IN) | payer OTHER ==
[~2024-12-09] VITALS: Ht 188 cm; Wt 68.9 kg
[2024-12-09] VITALS (9 sets, daily range): BP systolic 145–174; BP diastolic 102–124
[~2024-12-09 01:50] MED LIST changes: +HYDROCODONE-AC1 EA10 PO; +IBUP800 PO
[2024-12-09 02:45] LABS: BASOPHILS ABSOLUTE AUTO 0.03 K/mm3 (0.00-0.23); BASOPHILS PERCENT AUTO 0 % (0-2); EOSINOPHILS ABSOLUTE AUTO 0.11 K/mm3 (0.00-0.68); EOSINOPHILS PERCENT AUTO 1 % (0-6); Hematocrit 46.8 % (37.0-53.0); Hemoglobin 16.1 g/dL (13.5-17.5); IMMATURE GRAN ABSOLUTE AUTO 0.09 K/mm3 (0.00-0.10); IMMATURE GRAN PERCENT AUTO 0 % (0-1); LYMPHOCYTES ABSOLUTE AUTO 1.81 K/mm3 (0.84-5.20); LYMPHOCYTES PERCENT AUTO 9 % (21-46); MONOCYTES ABSOLUTE AUTO 1.05 K/mm3 (0.16-1.47); MONOCYTES PERCENT AUTO 5 % (4-13); Mean Corpuscular HGB 27.9 pg (26.0-34.0); Mean Corpuscular HGB Conc 34.4 g/dL (31.5-36.5); Mean Corpuscular Volume 81 fL (80-100); Mean Platelet Volume 9.3 fL (9.1-12.4); NEUTROPHILS PERCENT AUTO 85 % (41-73); Platelet Count 228 K/mm3 (150-400); RDW Standard Deviation 40.5 fL (35.1-46.3); Red Blood Cell Count 5.78 M/mm3 (4.30-5.90); White Blood Cell Count 21.09 K/mm3 (4.00-11.30)
[2024-12-09] MEDS ORDERED: HydrALAZINE HCl 20 MG / ML 1ML Vial IV ONE ×2 (02:50→03:50)
[2024-12-09 03:06] LABS: Albumin, Blood 3.6 g/dL (3.4-5.0); Albumin/Globulin Ratio 0.7 (0.8-1.8); Bilirubin, Total 0.6 mg/dL (0.1-1.0); Bun/Creatinine Ratio 18.6 (12.0-20.0); Calcium, Blood 9.7 mg/dL (8.5-10.1); Creatinine, Blood 1.13 mg/dL (0.60-1.20); Globulin, Blood 5.2 g/dL (2.2-4.0); Total Protein, Blood 8.8 g/dL (6.4-8.2)
[2024-12-09] MEDS ORDERED: NS 1,000 ML IV SCH (03:50)
[2024-12-09] MEDS ORDERED: Potassium Chl 20MEQ/Water100ML 100 ML IV ONE (03:50)
[2024-12-09] MEDS ORDERED: Acetaminophen 500 MG Tab PO ONE (04:30)
[2024-12-09 05:29] LABS: Thyroid Stimulating Hormone 1.49 uIU/mL (0.360-4.800)
[2024-12-09] MEDS ORDERED: Azithromycin 500 MG in NS 250 ML IV ONE (05:55)
[2024-12-09] MEDS ORDERED: CefTRIAXone Sodium 1,000 MG in NS 50 ML IV ONE (05:55)
[2024-12-09] MEDS ORDERED: HydrALAZINE HCl 20 MG / ML 1ML Vial IV PRN (06:05)
[2024-12-09] MEDS ORDERED: Ondansetron HCl 2 MG / ML 2ML Vial IV PRN (06:05)
[2024-12-09] MEDS ORDERED: Ondansetron HCl 2 MG / ML 2ML Vial IV ONE (06:45)
[2024-12-09] MEDS ORDERED: Enoxaparin 40 MG/0.4 ML SYR SC SCH (09:00)
--- NOTE | 2024-12-09 12:52 | NUR ---
PATIENT LYING IN BED QUIETLY, JUST FINISHED LUNCH. NO REPORTS OF CHEST PAIN, SOB. DOES ENDORSE BLURRED VISION, NO HEADACHE. EKG COMPLETE, RESULTS TO DR RENEE. VITALS PERFORMED. URINE SENT.
[2024-12-09 12:55] LABS: Source, Urine Clean Catch
[2024-12-09 13:07] LABS: Appearance, Urine Clear (Clear); Bilirubin, Urine Neg (Neg); Blood, Urine Neg (Neg); Color, Urine Yellow (P-Yellow); Glucose Qualitative, Urine 1+ (Neg); Ketones, Urine Neg (Neg); Leukocyte Esterase, Urine Neg (Neg); Nitrite, Urine Neg (Neg); Protein, Urine 4+ (Neg); Urobilinogen, Urine NORM (Normal)
[2024-12-09 13:19] LABS: Bacteria Many /hpf; Red Blood Cells, Urine 0-2 /hpf (0-2); Squamous Epithelial Cells Rare /hpf (Few)
[2024-12-09 13:22] LABS: U Amphetamine Screen DETECTED; U Barbituate Screen Not Detected; U Benzodiazapine Screen Not Detected; U Buprenorphine Screen Not Detected; U Cannabinoids Screen DETECTED; U Cocaine Screen Not Detected; U Methadone Screen Not Detected; U Methamphetamine Screen DETECTED; U Opiates Screen Not Detected; U Oxycodone Screen Not Detected; U Phencyclidine Screen Not Detected
--- NOTE | 2024-12-09 14:18 | NUR ---
CALLED DR RENEE, CRITICAL TROP RECEIVED. CATHERINE TRENDING DOWN, ADVISED NO NEW INTERVENTIONS, CONTINUE TO MONITOR. STATED MOST LIKELY RESULT FROM HIS HYPERTENSIVE CRISIS. PATIENT LYING QUIETLY IN BED AT THIS TIME.
--- NOTE | 2024-12-09 16:31 | NUR ---
LEFT MESSAGE ON DR RENEE PHONE TO REVIEW SAVED TELE STRIPS THERE HAVE BEEN CONTINUED CHANGES TO ST ELEVATION.
--- NOTE | 2024-12-09 17:24 | NUR ---
EKG PERFORMED AT DR THELMA FELDER. RESULTS TO DR RENEE, ASKED IF INTERIM SHIFT WOULD LOOK AT IT. CALLED DR RIVERA WITH RESULTS WHO STATED HE WOULD BE BY TO ASSESS PT. PATIENT LYING IN BED, NO C/O CHEST PAIN, SOB, RESTING COMFORTABLY LOOKING
--- NOTE | 2024-12-09 17:59 | NUR ---
SHIFT SUMMARY PATIENT ARRIVED TO MEDICAL FLOOR FROM ED THIS SHIFT. A/O X4 BUT DROWSY. SEVERAL CALLS FROM TELE REGARDING ST ELEVATION. 'Catherine MADE AWARE, SEE OTHER NOTES. PATIENT PRESENTS WITH BLACKENED SOILED HANDS AND FEETS, UNKEPT HYGIENE. DENIES BEING UNHOUSED. ADMITS TO USING METH AND MARIJUANA, BUT DOES NOT ENDORSE USING IV METHOD. VOIDING WELL USING URINAL. APPROPRIATE BEHAVIORS. ABLE TO MAKE NEEDS KNOWN. CALL LIGHT IN REACH, CARES ONGOING.
--- NOTE | 2024-12-09 18:12 | NUR ---
DR RIVERA AT BEDSIDE, REVIEWED CHART. SPOKE WITH RN. ADVISED TO CONTINUE TO MONITOR PT DOES NOT ENDORSE CHEST PAIN/OTHER SYPMTOMS AT THIS TIME.
--- NOTE | 2024-12-09 19:34 | NUR ---
Dr ybarra notified of the following critical lab value: troponin of 244 and of BP of 145/108. Denies any chest pain. HR 104. Sinus Tach per telemetry.
--- NOTE | 2024-12-09 20:42 | NUR ---
BREAK NURSE NOTE PT EXPERIENCING HTN. 174/134 THEN 10 MINUTES AFTER ADMINISTRATION, 164/122. DR RIVERA CONTACTED. WILL PUT IN ORDER FOR IV MEDICATIONS.
[2024-12-09] MEDS ORDERED: Labetalol HCL 5 MG/ML 4ML Injection (Single Dose) IV PRN (20:50)
[2024-12-10] VITALS (10 sets, daily range): BP systolic 130–195; BP diastolic 93–125
--- NOTE | 2024-12-10 04:06 | NUR ---
SHIFT SUMMARY A&0X4, MAKES NEEDS KNOWN, DR NOTIFIED OF ONGOING ELEVATED TROPONIN AT ONSET OF SHIFT, LATER DR ALSO NOTIFIED OF ELEVATED BPs ASSOCIATED WITH ONGOING BLURRED VISION. DENIES CP. IS EASILY IRRITABLE, RECEIVED PRN HYDRALAZINE X 1 AND PRN LABETOLOL X 1 THIS SHIFT PER PRN ORDERS (LABETOLOL NEW ORDER OF THIS SHIFT) AND WAS EFFECTIVE IN REDUCING BPs. ON TELEMETRY AND HAS BEEN IN NSR AND ST THIS SHIFT. VOIDING SUFFICIENT QUANTITIED AND RESTED WELL OVERNIGHT WITH SOME FEDERAL AGENT DIAPHORESIS. IS AFEBRILE.
[2024-12-10 07:08] LABS: BASOPHILS ABSOLUTE AUTO 0.03 K/mm3 (0.00-0.23); BASOPHILS PERCENT AUTO 0 % (0-2); EOSINOPHILS ABSOLUTE AUTO 0.08 K/mm3 (0.00-0.68); EOSINOPHILS PERCENT AUTO 1 % (0-6); Hematocrit 43.2 % (37.0-53.0); Hemoglobin 14.3 g/dL (13.5-17.5); IMMATURE GRAN ABSOLUTE AUTO 0.02 K/mm3 (0.00-0.10); IMMATURE GRAN PERCENT AUTO 0 % (0-1); LYMPHOCYTES ABSOLUTE AUTO 2.37 K/mm3 (0.84-5.20); LYMPHOCYTES PERCENT AUTO 20 % (21-46); MONOCYTES ABSOLUTE AUTO 0.74 K/mm3 (0.16-1.47); MONOCYTES PERCENT AUTO 6 % (4-13); Mean Corpuscular HGB 27.7 pg (26.0-34.0); Mean Corpuscular HGB Conc 33.1 g/dL (31.5-36.5); Mean Corpuscular Volume 84 fL (80-100); Mean Platelet Volume 9.8 fL (9.1-12.4); NEUTROPHILS ABSOLUTE AUTO 8.81 K/mm3 (1.96-9.15); NEUTROPHILS PERCENT AUTO 73 % (41-73); Platelet Count 194 K/mm3 (150-400); RDW Coefficient Variation 14.6 % (11.7-14.2); RDW Standard Deviation 44.3 fL (35.1-46.3); Red Blood Cell Count 5.17 M/mm3 (4.30-5.90); White Blood Cell Count 12.05 K/mm3 (4.00-11.30)
[2024-12-10 07:39] LABS: Albumin, Blood 3.2 g/dL (3.4-5.0); Albumin/Globulin Ratio 0.8 (0.8-1.8); Bilirubin, Total 0.5 mg/dL (0.1-1.0); Bun/Creatinine Ratio 18.7 (12.0-20.0); Calcium, Blood 9.4 mg/dL (8.5-10.1); Creatinine, Blood 1.23 mg/dL (0.60-1.20); Globulin, Blood 4.1 g/dL (2.2-4.0); Total Protein, Blood 7.3 g/dL (6.4-8.2)
[2024-12-10] MEDS ORDERED: Carvedilol 3.125 MG Tab PO SCH (08:00)
[2024-12-10] MEDS ORDERED: Aspirin 81 MG Chew PO SCH (09:00)
[2024-12-10] MEDS ORDERED: Losartan Potassium 25 MG Tab PO SCH (09:00)
[2024-12-10] MEDS ORDERED: Potassium Chloride 20 MEQ TabCR PO ONE (09:55)
[2024-12-10] MEDS ORDERED: Carvedilol 6.25 MG Tab PO SCH (17:00)
--- NOTE | 2024-12-10 18:32 | NUR ---
SHIFT SUMMARY- PT HAS BEEN GROGGY AND SLEEPING T/O THE SHIFT. NO C/O PAIN. STAFF ARE WAKING HIM FROM DEEP SLEEP WITH MOST INTERACTIONS. HE HAS WOKE FOR MEALS AND SEEMS TO HAVE A GOOD APPETITE. PT ALERT, ORIENTED AND INDEPENDENT IN THE ROOM. PT WOULD LIKE TO TAKE A SHOWER THIS EVENING, WILL PASS ON TO NIGHT RN IN REPORT.
--- NOTE | 2024-12-11 02:39 | NUR ---
SHIFT SUMMARY A&0X4, NSR ON TELE, TOOK A SHOWER EARLIER IN SHIFT,BPs SO FAR THIS SHIFT 133/101 AND 143/93. NO PRN MEDS HAVE BEEN NEEDED FOR BP MANAGEMENT, , STILL ENDORSES BLURRED VISION. VOIDING WNL, APPETITE GOOD. INDEPENDENT IN ROOM,DENIES ANY DIZZINESS. LIGHTHEADEDNESS ,CP OR PRESSURE, APPEARS TO BE RESTING WELL OVERNIGHT.
[2024-12-11 03:26] VITALS: BP 156/107
[2024-12-11 05:25] LABS: BASOPHILS ABSOLUTE AUTO 0.04 K/mm3 (0.00-0.23); BASOPHILS PERCENT AUTO 0 % (0-2); EOSINOPHILS ABSOLUTE AUTO 0.18 K/mm3 (0.00-0.68); EOSINOPHILS PERCENT AUTO 2 % (0-6); Hematocrit 38.9 % (37.0-53.0); Hemoglobin 12.9 g/dL (13.5-17.5); IMMATURE GRAN ABSOLUTE AUTO 0.03 K/mm3 (0.00-0.10); IMMATURE GRAN PERCENT AUTO 0 % (0-1); LYMPHOCYTES ABSOLUTE AUTO 2.44 K/mm3 (0.84-5.20); LYMPHOCYTES PERCENT AUTO 24 % (21-46); MONOCYTES ABSOLUTE AUTO 0.62 K/mm3 (0.16-1.47); MONOCYTES PERCENT AUTO 6 % (4-13); Mean Corpuscular HGB 27.9 pg (26.0-34.0); Mean Corpuscular HGB Conc 33.2 g/dL (31.5-36.5); Mean Corpuscular Volume 84 fL (80-100); Mean Platelet Volume 10.1 fL (9.1-12.4); NEUTROPHILS ABSOLUTE AUTO 6.99 K/mm3 (1.96-9.15); NEUTROPHILS PERCENT AUTO 68 % (41-73); Platelet Count 190 K/mm3 (150-400); RDW Coefficient Variation 14.6 % (11.7-14.2); RDW Standard Deviation 44.9 fL (35.1-46.3); Red Blood Cell Count 4.63 M/mm3 (4.30-5.90)
[2024-12-11 05:45] LABS: Bun/Creatinine Ratio 20.8 (12.0-20.0); Calcium, Blood 9.2 mg/dL (8.5-10.1); Creatinine, Blood 1.3 mg/dL (0.60-1.20); Potassium, Blood 3.2 mmol/L (3.5-5.5)
[2024-12-11 07:05] VITALS: BP 173/124
[2024-12-11] MEDS ORDERED: Potassium Chloride 20 MEQ TabCR PO ONE (10:00)
[2024-12-11 12:03] VITALS: BP 134/78
[2024-12-11 12:26] LABS: RPR SCREEN with Reflex Reactive (Nonreactive)
[2024-12-11 15:38] VITALS: BP 143/90
[2024-12-11 18:13] VITALS: BP 130/90
--- NOTE | 2024-12-11 18:35 | NUR ---
SHIFT SUMMARY- PT ALERT, ORIENTED AND INDEPENDENT IN THE ROOM. NSR ON TELE, BP'S HAVE REDUCED TO THE 130-140 RANGE MOST OF THE TIME. PT STILL C/O BLURRED VISION. MRI ORDERED, SCREENING FORM COMPLETED AND SENT TO MRI ALONG WITH PHOTO COPIES OF THE PT DEVICE CARDS FOR HIS RECENT VALVE REPLACEMENT AND REPAIR. PT HAS DENIED ANY OTHER SYMPTOMS. HE HAS SLEPT ALL DAY THOUGH. PT IS CURRENTLY IN BED, CALL LIGHT IN REACH NO S&S OF DISTRESS NOTED.
[2024-12-11 19:37] VITALS: BP 136/84
[2024-12-12 05:40] VITALS: BP 153/107
[2024-12-12 05:43] LABS: Bun/Creatinine Ratio 20.6 (12.0-20.0); Calcium, Blood 8.7 mg/dL (8.5-10.1); Creatinine, Blood 1.26 mg/dL (0.60-1.20); Potassium, Blood 3.8 mmol/L (3.5-5.5)
--- NOTE | 2024-12-12 06:02 | NUR ---
SHIFT SUMMARY; PATIENT SLEPT IN LONG INTERVALS, EYESIGHT STILL BLURRY. BP WNL, NO PRN MEDS REQUIRED. TELE NSR 90
[2024-12-12 07:48] VITALS: BP 158/112
[2024-12-12 14:11] LABS: CHOL/HDL RATIO 3.1; Cholesterol 125 mg/dL (50-200); HDL Cholesterol 40 mg/dL (>39); LDL/HDL RATIO 1.5; Low Density Lipoprotein Chol 59 mg/dL (0-110); Triglycerides 131 mg/dL (30-160); Very Low Density Lipoprot Chol 26 mg/dL (6-32)
--- NOTE | 2024-12-12 16:56 | NUR ---
SHIFT SUMMARY- PT ALERT ORIENTED AND INDEPENDENT IN THE ROOM. PT STATES HIS VISION TROUBLE REMAINS UNCHANGED. PROVIDED HIM WITH +2.00 OTC READING GLASSES, AND THE PT STATED THEY HELPED HIM SEE. PT THEN READ HIS MENU, BUT SAID "I NEVER WORE GLASSES BEFORE THOUGH." PT HAS LEFT THE GLASSES ON HIS SIDE TABLE BUT HE SAYS THEY DO HELP. PT HAD HIS HEAD MRI TODAY. PT HAS SPENT THE DAY NAPPING AND EATING. HE HAS GOOD APPETITE. HE IS CURRENTLY IN BED, CALL LIGHT IN REACH NO S&S OF DISTRESS NOTED. WILL PASS ON TO NIGHT RN IN BEDSIDE REPORT.
[2024-12-12 17:50] VITALS: BP 145/88
[2024-12-12 19:19] VITALS: BP 130/92
[2024-12-13] VITALS (7 sets, daily range): BP systolic 145–177; BP diastolic 84–107
--- NOTE | 2024-12-13 04:14 | NUR ---
RADIO ADJUSTER SHIFT SUMMARY PATIENT ADMITTED FOR HYPERTENSIVE CRISIS. ALERT AND ORIENTED X4. VITAL SIGNS STABLE. TELE SHOWS SINUS RHYTHM WITH A BUNDLE BRANCH BLOCK. PATIENT IS INDENDENT IN ROOM AND UP AD ALKA. PATIENT COMPLAINING OF BLURRY VISION, GLASSES APPEAR TO BE HELPING WITH THE BLURRED VISION. SLEEPING INTERMITTENLY WITH FEW INTERRUPTIONS. NO NOTED SIGNS OF DISTRESS. BED RAILS UP X2. CALL LIGHT WITHIN REACH. BED IN LOWEST POSITION FOR SAFETY. WILL CONTINUE TO MONITOR.
--- NOTE | 2024-12-13 04:40 | NUR ---
NURSE STUDENT PRECEPTOR NOTE I HAVE WORKED ALONG SIDE OF/WITH STUDENT AND HAVE READ AND AGREE WITH HER DOCUMENTATION.
[2024-12-13 05:29] LABS: Calcium, Blood 8.6 mg/dL (8.5-10.1); Creatinine, Blood 1.22 mg/dL (0.60-1.20); Potassium, Blood 3.7 mmol/L (3.5-5.5)
[2024-12-13] MEDS ORDERED: Aspirin 81 MG Chew PO SCH (09:00)
[2024-12-13] MEDS ORDERED: Enoxaparin 40 MG/0.4 ML SYR SC SCH (09:00)
[2024-12-13] MEDS ORDERED: Atorvastatin 40 MG Tab PO SCH (09:00)
--- NOTE | 2024-12-13 17:29 | NUR ---
WAS INFORMED BY [employer] THAT PATIENT HAS AN EPISODE OF ST ELEVATION. INFORMED DR SCHNEIDER AND ORDERED AN EKG. EKG RESULT WAS THEN GIVEN TO PROVIDER AND TOLD TO TAKE BP. INFORMED PROVIDER ABOUT BP RESULT AND NO NEW ORDER AT THIS TIME.
--- NOTE | 2024-12-13 17:41 | NUR ---
SHIFT SUMMARY PATIENT ALERT AND ORIENTED X4. INDEPENDENT IN THE ROOM. PATIENT HAD AN EPISODE OF ST ELEVATION PER SNOWBOARD DESIGNER, ASYMPTOMATIC AND PROVIDER INFORMED. NO ACUTE CHANGES THROUGHOUT THIS SHIFT. SPEND THE DAY SLEEPING AND SNACKING. VERY PLEASANT AND COOPERATIVE. CALL LIGHT WITHIN REACH AND BED IN LOWEST POSITION.
--- NOTE | 2024-12-13 18:06 | NUR ---
THIS NURSE WORKED ALONGSIDE THE STUDENT NURSE THIS SHIFT AND AGREE WITH HER DOCUMENTATION.
--- NOTE | 2024-12-14 00:05 | NUR ---
COVERING RONI POLO FOR BREAK. HE ASKED TO HAVE AN EKG DONE, WASH TANK TENDERANNIKA FARRELL CALLED REPORTING ST CHANGES. PT DENIES ANY CHEST PAIN. PT WAS UNABLE TO STAY STILL FOR THE EKG AND WAS GETTING FRUSTRATED. PT HAS A LEFT LEG TWITCH WHICH WAS ALSO CAUSING A PROBLEM WITH THE EKG. I DID GET AN EKG AND WILL REPORT THE ABOVE INFORMATION TO RONI POLO. I SPOKE WITH SHANNAN MCCAULEY AND SHOWED HIM THE EKG AND REPORTED I DIDN'T SEND IT JUST IN CASE MELANI WOULD LIKE TO DO ANOTHER EKG WHEN HE IS BACK FROM LUNCH. ALSO CALLED WASH TANK TENDER WITH AN UPDATE AND REVIEWED THE CURRENT EKG WITH THE PREVIOUS EKG ON PT'S CHART.
[2024-12-14 00:23] VITALS: BP 160/102
[2024-12-14 00:25] VITALS: BP 149/97
--- NOTE | 2024-12-14 00:41 | NUR ---
COILED TUBING SUPERVISOR REPORTED ELEVATED ST WAVES. EKG DONE, NSR WITH POSSIBLE LEFT ATRIAL ENLARGEMENT, LEFT VENTRICULAR HYPERTROPHY. ASYMPTOMATIC. HAS BEEN RESTING QUIETLY. WILL CONT TO MONITOR.
--- NOTE | 2024-12-14 01:16 | NUR ---
MD NOTIFIED OF EKG, VOICED HE WOULD REVIEW EKG AND ASSESS. PT REMAINS ASYMPTOMATIC
--- NOTE | 2024-12-14 03:51 | NUR ---
PORCELAIN ENAMEL LABORER SHIFT SUMMARY PATIENT ADMITTED FOR HYPERTENSIVE CRISIS. ALERT AND ORIENTED X4. TELE SHOWS SINUS RHYTHM 74 WITH A BBB. PATIENT DID HAVE A PERIOD OF ST ELEVATION DURING DAY SHIFT AND JOB LITHOGRAPHER. EKG WAS PERFORMED SHOWING NORMAL SINUS RHYTHM WITH POSSIBLE LEFT ATRIAL ENLARGEMENT, LEFT VENTRICULAR HYPERTROPHY. PATIENT DID HAVE SOME VOICED FRUSTRATION DURING EKG AND WAS STRUGGLING TO SIT STILL. PATIENT ASYMPTOMATIC. DOCTOR NOTIFIED OF ST ELEVATION AND EKG. PATIENT RESTING QUIETLY INTERMITTENLY. BED RAILS UP X2. CALL LIGHT WITHIN REACH. BED IN LOWEST POSITION FOR SAFETY. WILL CONTINUE TO MONITOR.
--- NOTE | 2024-12-14 04:00 | NUR ---
NURSE STUDENT PRECEPTOR NOTE I HAVE WORKED ALONG SIDE OF/WITH STUDENT AND HAVE READ AND AGREE WITH HER DOCUMENTATION.
[2024-12-14 04:55] LABS: Bun/Creatinine Ratio 16.5 (12.0-20.0); Calcium, Blood 8.5 mg/dL (8.5-10.1); Creatinine, Blood 1.03 mg/dL (0.60-1.20); Potassium, Blood 3.9 mmol/L (3.5-5.5)
[2024-12-14 04:58] VITALS: BP 149/100
[2024-12-14 05:14] LABS: T.PALLIDUM AB,IGG (FTA-ABS) Reactive (Non Reactive)
[2024-12-14 07:36] VITALS: BP 161/103
[2024-12-14] MEDS ORDERED: Losartan Potassium 50 MG Tab PO SCH (09:00)
--- NOTE | 2024-12-14 09:36 | NUR ---
PATIENT UP FOR MEDICATIONS AND BREAKFAST, HE WAS PLEASANT. WENT BACK TO SLEEP DIRECTLY AFTER EATING.
[2024-12-14 12:19] VITALS: BP 159/105
[2024-12-14] MEDS ORDERED: ATOR40TA PO (14:31)
[2024-12-14] MEDS ORDERED: ASPI81CH PO (14:31)
[2024-12-14] MEDS ORDERED: Carvedilol12.5 MG PO (14:32)
[2024-12-14] MEDS ORDERED: LOSA50 PO (14:32)
[2024-12-14] MEDS ORDERED: Nicoderm Cq1 EAC1 TOP (14:32)
[2024-12-15 06:12] LABS: ALDOSTERONE 15.7 ng/dL; ALDOSTERONE/RENINACTIVITY CALC 1.4 ratio (<=25.0); RENIN ACTIVITY 11.6 ng/mL/hr
== END 2024-12-14 15:03 | disposition home or self-care (01) | DRG 65 ==
LOC: ER 01:50 → ERHOLD 01:51 → MEDS 10:35
PROVIDERS: Emergency Medicine; Family Medicine; Internal Medicine; ADMIT Internal Medicine
DX: I63.89 Other cerebral infarction (principal); E87.1 Hypo-osmolality and hyponatremia; I16.1 Hypertensive emergency; N17.9 Acute kidney failure, unspecified; I50.32 Chronic diastolic (congestive) heart failure; I24.89 Other forms of acute ischemic heart disease; F15.10 Other stimulant abuse, uncomplicated; H53.8 Other visual disturbances; E86.0 Dehydration; E87.6 Hypokalemia; F17.210 Nicotine dependence, cigarettes, uncomplicated; F32.A Depression, unspecified; I11.0 Hypertensive heart disease with heart failure; R79.1 Abnormal coagulation profile; D72.829 Elevated white blood cell count, unspecified; E03.9 Hypothyroidism, unspecified; Z79.890 Hormone replacement therapy; Z95.2 Presence of prosthetic heart valve; Z79.82 Long term (current) use of aspirin; Z71.51 Drug abuse counseling and surveillance of drug abuser
CPT/HCPCS: 36415; 70450; 70551; 71045; 71260; 80048; 80053; 80061; 81001; 82088; 83605; 83735; 83880; 84145; 84244; 84443; 84484; 85025; 85379; 86592; 86593; 86780; 87040; 87086; 93005; 93010; 93306; 93880; 96365; 96366; 96368; 96372-59; 96375; 96376; 97112; 97162; 97165; 97530; 99285-25; A9270; G0378; J0360; J0456; J0696; J1650; J2405; J3480; J7030; J7050; Q9967